=== PATIENT | female | born 1940 | race Caucasian/White ===

== ENCOUNTER → 2017-02-21 | Outpatient (CLI) | payer MEDICARE, OTHER ==
[~2017-02-21] MED LIST: ACETAMINOPHEN PO; ADVAIR 115-21 INH; ADVAIR 250-501 EAC1 IH; ALBUTEROL MININEB NEB; ALBUTEROL17 GM INH; ALENDRONATE SOD10 MG PO; AMOXICILLIN PO; ASPIRIN PO; ATROVENT HFA12.9 G1 IH; AUGMENTIN875 MG PO; B-121000 MC1 PO; BLOOD PRESSURE PILL; BUMEX1 MG; BUMEX1 MG PO; CALCIUM + D 6001 TA1 PO; CALCIUM 500 +1 EAC4 PO; CALCIUM 600+D T1 TA1 PO; CARDIZEM30 M2 PO; CENTRUM SILVER PO; CIPRO PO; CLARITIN10 M1 PO; CLEOCIN PO; COMBIVENT U/D3 M2 INH; COMBIVENT U/D3 M3 INH; DOCUSATE SODIU100 MG PO; FAMOTIDINE PO; FERROUS SULFATE PO; FOLIC ACID1 MG PO; FOSAMAX PO; FUROSEMIDE40 MG PO; GARLIC OIL1000 MG PO; HYDROCHLOROTHIA25 MG PO; HYTRIN PO; IBUPROFEN PO; IPRAT-ALBUT 0.5-3 ML INH; KCL PO; LEVAQUIN PO; LIPITOR PO; LISINOPRIL20 MG PO; MACROBID100 MG PO; METOPROLOL TART25 MG PO; MILK OF MAGNESIA PO; NAPROXEN PO; NEURONTIN PO; NICOTINE T1 PATCH .2 TOP; NICOTINE TRANSD14 MG TD; NICOTINE1 EACH TD; NORVASC PO; ONDANSETRON HCL8 MG PO; PAIN & FEVER325 MG PO; PATIENT'S PHARMACY; PLENDIL PO; PREDNISONE PO; PREDNISONE10 MG PO; PRILOSEC PO; PYRIDIUM PO; SPIRIVA18 MCG INH; STOOL SOFTENER1 EAC1; SYMBICORT INH; TAGAMET PO; TOPROL XL PO; TYLENOL80 MG/0.2 PO; VIT B-12 PO; VITAMIN D-3 PO; VITAMIN D250000 UNIT PO; VITAMIN D50000 UNIT PO; ZANTAC PO; ZITHROMAX PO; ZOFRAN PO; [UNRECOGNIZED DRUG - OTHER]; [UNRECOGNIZED DRUG - REMARK]; [UNRECOGNIZED DRUG - REMARK]
--- NOTE | ~2017-02-21 | CT55 ---
[facility] A Service of [facility] RADIOLOGY TEXT RESULTS PATIENT: AIXA BANDA LOCATION: [facility] : 39 UNIT #: [id number] AGE: [address]: Patricia Díaz MD SEX: F ORDER DR: [id number] [facility] [address] [place], [place] [address] [id number] O MR#: [id number] Acc #: [id number] NAME: AIXA BANDA : 1940 SEX: F STUDY DATE/TIME: 02/21/2017 16:42 UNIT: [facility] ROOM: STUDY DESCRIPTION: CT Chest W Con Attending Physician: Patricia Díaz M.D. Referring Physician: Patricia Díaz M.D. Ordering Physician: Patricia Díaz M.D. Primary Care Physician: Afshan Thakur M.D. MEDICAL IMAGING REPORT This report is preliminary unless electronic signature is present EXAM CT of the chest with contrast. INDICATION Small cell lung cancer. Patient underwent chemotherapy and radiation ending in June 2017. This exam is requested for surveillance for metastatic disease. TECHNIQUE Axial CT imaging was obtained from the thoracic inlet through the dome of the diaphragm following the administration of intravenous contrast material. This CT exam was performed with one or more of the following radiation dose reduction techniques: automatic exposure control, adjustment of mA and/or kV according to patient size, and iterative reconstruction. FINDINGS Background emphysematous changes are seen. This patient has patchy nodular consolidation noted at the lung apices bilaterally, right greater than left. Similar findings have been present since at least 2007 and this is favored to represent some fibrosis. Within the right upper lobe, there is a subpleural nodule measuring up to about 7 mm in size which I do not clearly identify on the prior examinations. Previously noted bilobed pulmonary nodule straddling the major fissure on the right is stable to perhaps slightly decreased in size when compared to prior examination. Band-like consolidation within the right lower lobe also is improved. There are trace bilateral pleural effusions, right greater than left. These are improved when compared to the prior examination. There is no pericardial effusion. Mediastinal and hilar lymph nodes appear smaller. For example, a precarinal node measures within 1.6 x 1.2 cm, previously 1.7 x 1.5 cm, and a right hilar node measures 2.0 x 1.3 cm, previously 2.2 x 1.5 cm. Patient has a known history of pulmonary emboli. I suspect [facility] A Service of [facility] RADIOLOGY TEXT RESULTS PATIENT: AIXA ABNDA LOCATION: [facility] : 39 UNIT #: [id number] AGE: [address]: Patricia Díaz MD SEX: F ORDER DR: there are probably some persistent filling defects within branches to the lower lobes bilaterally. Full assessment is difficult as this is not an angiographic protocol CT. There are dystrophic calcifications of the aortic valve annulus as well as extensive atherosclerotic involvement of the thoracic aorta and coronary arteries. The patient's CT of the abdomen and pelvis will be dictated separately. No aggressive osseous abnormalities are seen. IMPRESSION 1. This patient has a new 7 mm noncalcified pulmonary nodule seen within the right upper lobe. Clinical significance is uncertain. This certainly could reflect a benign finding but I would suggest short-term CT followup in 3-6 months. Previously identified nodule straddling the fissure is stable to improved in appearance. This has been noted involving the major fissure on the right and again is stable to improved when compared to the prior examination as is mediastinal and hilar adenopathy. 2. Trace bilateral pleural effusions, right greater than left, improved when compared to the prior examination, as is a band-like area of consolidation in the right lower lobe. 3. Patient has a history of bilateral pulmonary emboli. There are probably some persistent filling defects within branches to the lower lobes, although difficult to assess on a non-angiographic protocol CT. 4. Also noted but not mentioned in the report is enlargement of the pulmonary arteries bilaterally. This may reflect some underlying pulmonary arterial hypertension. Please see the body of the report for any other additional incidental findings. Dictated by... Sara Dumont M.D. THIS IS AN ELECTRONICALLY VERIFIED REPORT Sara Dumont M.D. at 02/22/2017 5:21 PM MAYRA/anny TD: 02/22/2017 10:20 JOB #: [id number] MEDICAL IMAGING REPORT Page 1 of 1 COPY
--- NOTE | ~2017-02-21 | CT2 ---
[facility] A Service of [facility] RADIOLOGY TEXT RESULTS PATIENT: AIXA BANDA [facility] : 39 UNIT #: [id number] AGE: [address]: Patricia Díaz MD SEX: F ORDER DR: [id number] [place] [address] [facility] [place], [place] [address] [id number] O MR#: [id number] Acc #: [id number] NAME: AIXA BANDA : 1940 SEX: F STUDY DATE/TIME: 02/21/2017 16:42 UNIT: [facility] ROOM: STUDY DESCRIPTION: CT Abd and Pelv W Cont Attending Physician: Patricia Díaz M.D. Referring Physician: Patricia Díaz M.D. Ordering Physician: Patricia Díaz M.D. Primary Care Physician: Afshan Thakur M.D. MEDICAL IMAGING REPORT This report is preliminary unless electronic signature is present EXAM CT abdomen and pelvis with contrast INDICATIONS Followup small cell lung cancer. Observation for metastatic disease. TECHNIQUE CT of the abdomen and pelvis was performed following the administration of IV contrast. Coronal and sagittal reformatted images were obtained. Comparison with 11/23/[address] exam was performed with one or more of the following radiation dose reduction techniques: automatic exposure control, adjustment of mA and/or kV according to patient size, and iterative reconstruction. FINDINGS Please refer to separately dictated CT of the chest for findings above the diaphragm. The liver is unremarkable. Cholecystectomy. The spleen is unremarkable. Tiny cyst in the left kidney. The right kidney is unremarkable. Stable mild adrenal gland thickening bilaterally. The pancreas is unremarkable. Pelvis: The colon is unremarkable. No free fluid. Bone windows demonstrate postop changes of the right hip. The bone windows are otherwise unremarkable. IMPRESSION 1. No evidence of metastatic disease to the abdomen or pelvis. 2. Additional findings as described. Dictated by... [facility] A Service [facility] RADIOLOGY TEXT RESULTS PATIENT: AIXA BANDA [facility] : 39 UNIT #: [id number] AGE: [address]: Patricia Díaz MD SEX: F ORDER DR: Ron Ambrocio M.D. THIS IS AN ELECTRONICALLY VERIFIED REPORT Ron Ambrocio M.D. at 02/24/2017 9:00 AM Rosemarie TD: 02/22/2017 09:50 JOB #: [id number] MEDICAL IMAGING REPORT Page 1 of 1 COPY
[2017-02-21 19:20] LABS: POC - GFR >60.0 mL/min (>60)
== END | disposition home or self-care (01) ==
LOC: CCAT 15:50
PROVIDERS: Internal Medicine Hematology
DX: C34.11 Malignant neoplasm of upper lobe, right bronchus or lung (principal); R91.1 Solitary pulmonary nodule; J90 Pleural effusion, not elsewhere classified; J18.1 Lobar pneumonia, unspecified organism; Z86.711 Personal history of pulmonary embolism
CPT/HCPCS: 71260; 74177; 82565; Q9967

== ENCOUNTER → 2017-03-18 | Outpatient (CLI) | payer MEDICARE, OTHER | END | disposition home or self-care (01) | LOC: CSSDAY 08:11 | DX: D50.9 Iron deficiency anemia, unspecified (principal); K90.9 Intestinal malabsorption, unspecified | CPT/HCPCS: 36415; 36430; 86850; 86900; 86901; 86923; J1940; P9016 ==

== ENCOUNTER → 2017-04-11 | Outpatient (CLI) | payer MEDICARE, OTHER ==
--- NOTE | ~2017-04-11 | CR63 ---
[facility] A Service of [facility] & [facility] RADIOLOGY TEXT RESULTS PATIENT: AIXA BANDA LOCATION: [facility] : 39 UNIT #: [id number] AGE: [address]: ADA REDDY SEX: F ORDER DR: [id number] [facility] [address] [place], [place] [address] [id number] O MR#: [id number] Acc #: [id number] NAME: AIXA BANDA : 1940 SEX: F STUDY DATE/TIME: 04/11/2017 17:00 UNIT: [facility] ROOM: STUDY DESCRIPTION: CR Chest 2 View Attending Physician: Ashley Crisostomo Referring Physician: Ashley Crisostomo Ordering Physician: Ashley Crisostomo Primary Care Physician: Afshan Thakur M.D. MEDICAL IMAGING REPORT This report is preliminary unless electronic signature is present EXAM 2 views of the chest COMPARISON February 28, 2017 September 20, 2016 September 13, 2016. INDICATIONS 76 old female with cough and chest congestion for 4 days. History of right-sided small cell lung cancer. FINDINGS The lungs now appear better aerated. Heart size is within normal limits for portable technique. Interstitial prominence throughout the lungs has improved which may have reflected an infectious or inflammatory process. Nodular opacity in the right pulmonary apex appears to have resolved from comparison with persistent medial right apical nodular appearing opacity not significantly changed from February 28, 2017. Given the patient's history of lung cancer malignancy cannot entirely be excluded. This may also reflect pleural parenchymal scarring. No convincing evidence of acute airspace disease. There is minimal scarring or atelectasis in the right lung base. No evidence of pneumothorax or pleural effusion. Surgical clips again noted in the epigastrium. IMPRESSION Overall interstitial prominence throughout the lungs has improved with improved focal opacity in the right upper lobe. Findings would seem to reflect interval resolution of infectious or inflammatory process. Treated malignancy could also give similar findings. There is persistent pleural based nodular density in the right apex, which may represent focal pleural parenchymal scarring. Given the patient's history of right-sided lung cancer, continued imaging followup is recommended to exclude malignancy. No significant pleural effusion. No evidence of pneumothorax or acute pneumonia. [facility] A Service of [facility] RADIOLOGY TEXT RESULTS PATIENT: AIXA BANDA LOCATION: [facility] : 39 UNIT #: [id number] AGE: [address]: ADA REDDY SEX: F ORDER DR: Not mentioned specifically in the body of the report there is similar appearing gaseous distention of the splenic flexure of the colon as compared to August 2016. Dictated by... Adolfo Arroyo M.D. THIS IS AN ELECTRONICALLY VERIFIED REPORT Adolfo Arroyo M.D. at 04/14/2017 7:52 AM Eduar TD: 04/12/2017 10:07 JOB #: [id number] MEDICAL IMAGING REPORT Page 1 of 1 COPY
== END | disposition home or self-care (01) ==
LOC: CRAD 16:27
DX: R05 Cough (principal); R91.8 Other nonspecific abnormal finding of lung field
CPT/HCPCS: 71020

== ENCOUNTER 2017-08-08 13:27 | Emergency (ER) | payer MEDICARE, OTHER ==
[~2017-08-08] VITALS: Ht 170.2 cm; Wt 65.3 kg
--- NOTE | ~2017-08-08 | CT4 ---
[facility] A Service of [facility] & [facility] RADIOLOGY TEXT RESULTS PATIENT: AIXA BANDA LOCATION: [facility] : 39 UNIT #: [id number] AGE: [address]: Noemí Navarrete MD SEX: F ORDER DR: [id number] [facility] [address] [place], [place] [address] [id number] E MR#: [id number] Acc #: [id number] NAME: AIXA BANDA : 1940 SEX: F STUDY DATE/TIME: 08/08/2017 18:07 UNIT: [facility] ROOM: STUDY DESCRIPTION: CT Abd and Pelv Wo Cont Attending Physician: Noemí Navarrete M.D. Ordering Physician: Noemí Navarrete M.D. Primary Care Physician: Afshan Thakur M.D. MEDICAL IMAGING REPORT This report is preliminary unless electronic signature is present EXAM CT abdomen and pelvis without contrast HISTORY 76-year-old female mid back pain, abdominal pain, difficulty standing. History of lung cancer currently under treatment. COMPARISON 02/21/2017 TECHNIQUE Axial images performed through the abdomen and pelvis without contrast. Multiplanar reconstructed images reviewed at a workstation. This CT exam was performed with one or more of the following radiation dose reduction techniques: automatic exposure control, adjustment of mA and/or kV according to patient size, and iterative reconstruction. FINDINGS ABDOMEN: Lung bases remarkable for emphysematous changes and fibrosis and right lower lobe bronchiectasis. Probable small amount of right basilar atelectasis. Cardiomegaly and postoperative stent or mesh is seen along the aortic outflow tract possibly related to TAVR procedure. Liver is mildly hyperdense relative to the spleen. This is nonspecific but can be seen with Amiodarone therapy. Correlate clinically. Surgical clips are noted in the right upper quadrant and the patient is apparently post cholecystectomy. Mild splenomegaly. Pancreas unremarkable. The adrenal glands are enlarged particularly on the left but no focal mass lesion seen. This may represent adrenal hyperplasia. The kidneys unremarkable. No free air or free fluid. Moderate amount of colonic stool but no evidence of obstruction. Retroperitoneum unremarkable. PELVIS: Bladder is distended. Uterus absent. Osseous structures STS. [facility] A Service of [facility] & [facility] RADIOLOGY TEXT RESULTS PATIENT: [facility]IX[facility] BANDA [id number] : 39 UNIT #: [id number] AGE: [address]: Noemí Navarrete MD SEX: F ORDER DR: unremarkable. IMPRESSION 1. Small amount of right basilar atelectasis with evidence of background emphysema and fibrosis. 2. Questionable hyperdensity of the liver can be seen with hemochromatosis also seen with Amiodarone therapy. Correlate clinically. 3. Mild splenomegaly. 4. Not mentioned above there are multiple clips in the epigastric region possibly related to either prior gastric surgery or possible embolization procedure. 5. The adrenal glands are not well visualized due to lack of contrast and oral contrast but both adrenal glands appear somewhat prominent, particularly the left adrenal gland. This could represent adrenal hyperplasia. Metastatic disease not excluded. No discrete adrenal mass lesion seen. 6. Moderately distended bladder with a moderate amount of colonic stool. 7. Not mentioned above, the patient is status post right hip arthroplasty. Dictated by... Arina Ambrocio M.D. THIS IS AN ELECTRONICALLY VERIFIED REPORT Arina Ambrocio M.D. at 08/09/2017 3:11 PM Ricardo TD: 08/09/2017 11:48 JOB #: [id number] MEDICAL IMAGING REPORT Page 1 of 1 COPY
--- NOTE | ~2017-08-08 | CR72 ---
[facility] A Service of [facility] RADIOLOGY TEXT RESULTS PATIENT: AIXA BANDA LOCATION: [facility] : 39 UNIT #: [id number] AGE: [address]: Noemí Navarreet MD SEX: F ORDER DR: [id number] [facility] [address] [place], [place] [address] [id number] E MR#: [id number] Acc #: [id number] NAME: AIXA BANDA : 1940 SEX: F STUDY DATE/TIME: 08/08/2017 17:28 UNIT: [facility] ROOM: STUDY DESCRIPTION: CR Chest Single View Portable Attending Physician: Noemí Navarrete M.D. Ordering Physician: Noemí Navarrete M.D. Primary Care Physician: Afshan Thakur M.D. MEDICAL IMAGING REPORT This report is preliminary unless electronic signature is present EXAM Portable chest. HISTORY Back pain, shortness of air, onset today. COMPARISON 05/28/2017. FINDINGS Portable view of the chest demonstrates coarse parenchymal markings suggesting underlying fibrosis and chronic lung disease. No acute airspace disease or consolidation. No effusions. Mesh projects over the aortic outlet, consistent with probable TAVR procedure. Dual lead pacemaker noted. Small amount of right apical pleural thickening. No effusions or pneumothorax. Dictated by... Arina Ambrocio M.D. THIS IS AN ELECTRONICALLY VERIFIED REPORT Arina Ambrocio M.D. at 08/09/2017 3:11 PM INÉS/desmond TD: 08/09/2017 09:43 JOB #: [id number] MEDICAL IMAGING REPORT Page 1 of 1 COPY
--- NOTE | ~2017-08-08 | EKG ---
PATIENT: AIXA BANDA UNIT #: [id number] Ventricular Rate: 78 BPM Atrial Rate: 78 BPM P-R Interval: 194 ms QRS Duration: 140 ms Q-T Interval: 420 ms QTC Calculation(Bezet): 478 ms P Roxie: 37 degrees Calculated R Roxie: 26 degrees Calculated T Roxie: 9 degrees Diagnosis Line: Normal sinus rhythm Right bundle branch block Diagnosis Line: Abnormal ECG Diagnosis Line: When compared with ECG of 20-SEP-2016 01:11, Diagnosis Line: No changes noted Diagnosis Line: Confirmed by FUNMI CRAWFORD MD ([id number]) on Diagnosis Line: 08/09/2017 12:37:31 PM INTERPRETING MD: YVETTE PERALTA
[2017-08-08 14:40] LABS: URINE SOURCE CLEAN CATCH
[2017-08-08 14:56] LABS: URINE APPEARANCE CLEAR; URINE BILIRUBIN NEG (NEG); URINE BLOOD NEG (NEG); URINE COLOR YELLOW; URINE GLUCOSE NEG (NEG); URINE KETONE NEG (NEG); URINE LEUKOCYTE ESTERASE 1+ (NEG); URINE NITRATE NEG (NEG); URINE PROTEIN NEG (NEG); URINE SPECIFIC GRAVITY 1.009 (1.003-1.035); URINE UROBILINOGEN 0.2 MG/DL (NEG)
[2017-08-08 15:03] LABS: CULTURE INDICATED? YES; URBCS1 AUWI 0-2 /[HPF] (0-2); URINE BACTERIA AUWI NEG (NEGATIVE); URINE SQUAMOUS EPITHELIAL CELL NONE SEEN /[HPF]
[2017-08-08 15:27] LABS: BASOPHIL% 0.4 % (0-2.5); EOSINOPHIL# 0.1 X10e3 (0-0.7); EOSINOPHIL% 1.5 % (0.0-7.0); HEMATOCRIT 31.7 % (35.0-45.0); HEMOGLOBIN 10.3 gm/dL (12.0-16.0); LYMPHOCYTE# 0.6 X10e3 (1.0-3.5); LYMPHOCYTE% 9.5 % (17.0-45.0); MEAN CORPUSCULAR HEMOGLOBIN 28.9 PG (28-34); MEAN CORPUSCULAR HGB CONC 32.4 g/dL (30-36); MEAN PLATELET VOLUME 8.1 FL (6.5-11.5); MONOCYTE# 0.4 X10e3 (0-1.0); MONOCYTE% 7.1 % (3.0-12.0); NEUTROPHIL% 81.5 % (40-75); PLATELET COUNT 190 X10e3 (140-420); RED BLOOD COUNT 3.57 X10e (3.90-5.30); RED CELL DISTRIBUTION WIDTH 16.3 % (11.0-15.5); WHITE BLOOD COUNT 6.2 X10e3 (4.0-10.5)
[2017-08-08 15:32] LABS: DIFF IND NO
[2017-08-08 16:00] LABS: ALBUMIN SERUM 4.1 g/dL (3.5-5.0); BILIRUBIN, DIRECT 0.1 mg/dL (0.0-0.2); BILIRUBIN,INDIRECT 0.5 mg/dL (0.0-0.9); BILIRUBIN,TOTAL 0.6 mg/dL (0.2-2.0); BUN/CREATININE RATIO 17.27; CREATININE SERUM 1.1 mg/dL (0.6-1.4); GLOM FILT RATE Estimated 48.4 mL/min (>60); PROTEIN TOTAL SERUM 7.6 g/dL (6.0-8.3)
[2017-08-08 17:39] LABS: POC - CKMB 1.3 ng/mL (0.0-7.9); POC - TROPONIN <0.05 ng/mL (<=0.05)
== END 2017-08-08 18:57 | disposition home or self-care (01) ==
LOC: CED 13:27
PROVIDERS: Emergency Medicine
DX: N39.0 Urinary tract infection, site not specified (principal); I11.0 Hypertensive heart disease with heart failure; I50.9 Heart failure, unspecified; J44.9 Chronic obstructive pulmonary disease, unspecified; E78.5 Hyperlipidemia, unspecified; I35.0 Nonrheumatic aortic (valve) stenosis; Z85.118 Personal history of other malignant neoplasm of bronchus and lung; Z90.49 Acquired absence of other specified parts of digestive tract; Z90.710 Acquired absence of both cervix and uterus; Z91.040 Latex allergy status
CPT/HCPCS: 36415; 71010; 74176; 80048; 80076; 81003; 82553; 83605; 84484; 85025; 87086; 93005; 96374; 96375; 99285; J2270; J2405

== ENCOUNTER → 2017-08-10 | Outpatient (CLI) | payer MEDICARE ==
--- NOTE | ~2017-08-10 | CR181 ---
[facility] A Service of [facility] & [facility] RADIOLOGY TEXT RESULTS PATIENT: AIXA BANDA LOCATION: [facility] : 39 UNIT #: [id number] AGE: [address]: Afshan Thakur MD SEX: F ORDER DR: [id number] [facility] [address] [place], [place] [address] [id number] O MR#: [id number] Acc #: [id number] NAME: AIXA BANDA : 1940 SEX: F STUDY DATE/TIME: 08/10/2017 18:39 UNIT: [facility] ROOM: STUDY DESCRIPTION: CR Lumbar Spine 2 or 3 Views Attending Physician: Afshan Thakur M.D. Referring Physician: Afshan Thakur M.D. Ordering Physician: Afshan Thakur M.D. Primary Care Physician: Afshan Thakur M.D. MEDICAL IMAGING REPORT This report is preliminary unless electronic signature is present EXAM Lumbar spine, 08/10 INDICATION Low back pain for 1 day. No trauma. Stiffness. FINDINGS 3 views of the lumbar spine were obtained. No fracture or subluxation is identified. Vertebral body heights and disc spaces are within normal limits. IMPRESSION Negative lumbar spine. Dictated by... Brandon Valentino Jr., M.D. THIS IS AN ELECTRONICALLY VERIFIED REPORT Brandon Valentino Jr., M.D. at 08/11/2017 6:27 PM LIZBETH/indira TD: 08/11/2017 12:53 JOB #: [id number] MEDICAL IMAGING REPORT Page 1 of 1 COPY
--- NOTE | ~2017-08-10 | CR242 ---
[facility] A Service of [facility] & [facility] RADIOLOGY TEXT RESULTS PATIENT: AIXA BANDA LOCATION: [facility] : 39 UNIT #: [id number] AGE: [address]: Afshan Thakur MD SEX: F ORDER DR: [id number] [facility] [address] [place], [place] [address] [id number] O MR#: [id number] Acc #: [id number] NAME: AIXA BANDA : 1940 SEX: F STUDY DATE/TIME: 08/10/2017 18:38 UNIT: [facility] ROOM: STUDY DESCRIPTION: CR Thoracic Spine 2 Views Attending Physician: Afshan Thakur M.D. Referring Physician: Afshan Thakur M.D. Ordering Physician: Afshan Thakur M.D. Primary Care Physician: Afshan Thakur M.D. MEDICAL IMAGING REPORT This report is preliminary unless electronic signature is present EXAM Thoracic spine, 08/10 INDICATIONS Mid back pain and stiffness that started this morning. No trauma. FINDINGS Three views of the thoracic spine are compared with PA and lateral chest x-ray from 05/25/2017. There is some degenerative endplate spurring at multiple levels. There are no acute compression fractures. Very mild mid-thoracic compression deformity noted. Patient has a prominent thoracic kyphosis. IMPRESSION Multilevel degenerative endplate disease. No acute compression fractures are seen, and there is no subluxation. There is a prominent thoracic kyphosis. Dictated by... Brandon Valentino Jr., M.D. THIS IS AN ELECTRONICALLY VERIFIED REPORT Brandon Valentino Jr., M.D. at 08/11/2017 6:27 PM MCKENZIEK/yvette TD: 08/11/2017 12:55 JOB #: [id number] MEDICAL IMAGING REPORT Page 1 of 1 COPY
== END | disposition home or self-care (01) ==
LOC: CRAD 17:22
DX: M54.9 Dorsalgia, unspecified (principal); M51.34 Other intervertebral disc degeneration, thoracic region; M40.204 Unspecified kyphosis, thoracic region
CPT/HCPCS: 72070; 72100